=== PATIENT | male | born 1965 | race Caucasian/White ===

== ENCOUNTER 2018-10-19 09:09 | Emergency (ER) | payer BC ==
[2018-10-19 09:18] VITALS: BP 139/89; PULSE 95; TEMP 98.4; BMI 32.8
[2018-10-19] MEDS ORDERED: IBUPROFEN 400 MG TABLET (FP) PO ONE ×2 (09:29→09:31)
--- NOTE | 2018-10-19 09:50 | PDOC ---
History of Present Illness - General Chief Complaint: Pain Stated Complaint: LT FOOT PAIN Time Seen by Provider: 10/19/18 09:20 History Source: Patient Exam Limitations: No Limitations Past History - Past Medical History Allergies/Adverse Reactions: Allergies Allergy/AdvReac Type Severity Reaction Status Date / Time Penicillins Allergy Unknown Verified 10/19/18 09:25 Home Medications: Ambulatory Orders Methylprednisolone [Medrol Dose Jose Roberto] 4 mg PO ASDIR #21 tablet 10/19/18 Cardiac Disorders: Yes COPD: No - Surgical History Abdominal Surgery: Yes (HERNIA REPAIR) - Suicide/Smoking/Psychosocial Hx Smoking Status: No Smoking History: Former smoker Have you smoked in the past 12 months: No Number of Cigarettes Smoked Daily: 0 If you are a former smoker, when did you quit?: 26 years ago Information on smoking cessation initiated: No Hx Alcohol Use: Yes (Occasional) Drug/Substance Use Hx: No Substance Use Type: Alcohol Hx Substance Use Treatment: No *Physical Exam - Vital Signs Last Vital Signs Temp Pulse Resp BP Pulse Ox 98.4 F 95 H 18 139/89 97 10/19/18 09:16 10/19/18 09:16 10/19/18 09:16 10/19/18 09:16 10/19/18 09:16 - Physical Exam General Appearance: No: Apparent Distress Musculoskeletal: positive: Other (Mild TTP along L heel and L medial malleolus, no swelling, no erythema, no change in skin color, no deformity, pulses intact L foot). negative: Decreased Range of Motion Extremity: negative: Pedal Edema, Swelling, Calf Tenderness Integumentary: positive: Normal Color, Dry Neurologic: positive: Alert, Normal Mood/Affect Moderate Sedation - Procedure Monitoring Vital Signs: Procedure Monitoring Vital Signs Temperature 98.4 F 10/19/18 09:16 Pulse Rate 95 H 10/19/18 09:16 Respiratory Rate 18 10/19/18 09:16 Blood Pressure 139/89 10/19/18 09:16 O2 Sat by Pulse Oximetry (%) 97 10/19/18 09:16 ED Treatment Course - RADIOLOGY Radiology Studies Ordered: Category Date Time Status ANKLE & FOOT-LEFT* [RAD] Stat Radiology 10/19/18 09:29 Ordered - Medications Given in the ED: ED Medications Discontinued Medications Generic Name Dose Route Start Last Admin Trade Name Freq PRN Reason Stop Dose Admin Ibuprofen 800 mg 10/19/18 09:29 10/19/18 09:37 Motrin - PO 10/19/18 09:30 800 mg ONCE ONE Administration Medical Decision Making - Medical Decision Making 52 y/o M hx of gout, arthritis presents with L foot pain x 5 days. Denies trauma. Took Diclofenac once which helped a bit with pain. Feels pain along 1st toe and heel. Pain is worse with walking. Possible heel spur vs plantar fasciitis Plan: L foot xray, Motrin 10/19/18 09:46 L foot xray wet read: Heel spur noted Patient's PCP, DR. Morrell, came by to see patient - recommends started short course of Medrol Will refer to podiatry Stable for dc 10/19/18 10:11 *DC/Admit/Observation/Transfer Diagnosis at time of Disposition: Heel spur Qualifiers: Laterality: left Qualified Code(s): M77.32 - Calcaneal spur, left foot - Discharge Dispostion Disposition: HOME Condition at time of disposition: Stable Decision to Admit order: No - Prescriptions Prescriptions: Methylprednisolone [Medrol Dose Jose Roberto] 4 mg PO ASDIR #21 tablet - Referrals Referrals: Angel Morrell MD [Primary Care Provider] - 2 Days Nikita Aleman MD [Staff Physician] - Call tomorrow - Patient Instructions Printed Discharge Instructions: DI for Foot Pain Additional Instructions: Thank you for choosing [facility]. It was a pleasure taking care of you. Your xray shows a left heel spur, possibly causing your pain You were prescribed short course of steroids - Medrol - take as prescribed Take Motrin 600 mg every 6 hours as needed for pain - this medication can upset the stomach. Take with food. You were referred to speeder worker - call for further evaluation Return to the Emergency Department if your symptoms worsen or persist or have other concerning symptoms. - Post Discharge Activity
== END 2018-10-19 10:25 | disposition home or self-care (01) ==
LOC: JERFT 09:09
DX: M77.32 Calcaneal spur, left foot (principal)
CPT/HCPCS: 73610-TC-LT-FY; 73630-TC-LT; 99281-25